=== PATIENT | male | born 1955 | race Caucasian/White ===

== ENCOUNTER 2017-12-15 19:38 | Emergency (ER) | payer OTHER ==
[2017-12-15 19:55] VITALS: BP 152/82
--- NOTE | 2017-12-15 21:29 | UC ---
Dental HPI - HPI Summary HPI Summary: Patient is a 62-year-old male presenting to the with lower right jaw pain and swelling from a cracked tooth for many years ago which is now becoming loose. He endorses worsening pain over the past 3 days. Denies any fevers, sweats, chills. He states the pain is so great it is now making him dizzy. Denies any cardiac history. - History of Current Complaint Chief Complaint: UCDentalProblem Stated Complaint: SORE ON MOUTH Time Seen by Provider: 12/15/17 20:01 Hx Obtained From: Patient Onset/Duration: Sudden Onset Severity: Moderate Pain Intensity: 8 Pain Scale Used: 0-10 Numeric - Allergies/Home Medications Allergies/Adverse Reactions: Allergies Allergy/AdvReac Type Severity Reaction Status Date / Time simvastatin Allergy Intermediate Hives Verified 12/15/17 19:55 Home Medications: Home Medications Cholecalciferol TAB* [Vitamin D TAB*] 400 unit PO DAILY 12/15/17 [History Confirmed 12/15/17] Ferrous Gluconate [Iron] 236 mg PO DAILY WITH MEAL 12/15/17 [History Confirmed 12/15/17] Pantoprazole Sodium [Protonix] 40 mg PO DAILY WITH MEAL 12/15/17 [History Confirmed 12/15/17] Sildenafil Citrate [Viagra] 100 mg PO ONCE 12/15/17 [History Confirmed 12/15/17] PMH/Surg Hx/FS Hx/Imm Hx Previously Healthy: Yes - Surgical History Surgical History: None Surgery Procedure, Year, and Place: denies - Family History Known Family History: Positive: Cardiac Disease - Social History Occupation: Employed Full-time Lives: With Family Alcohol Use: None Substance Use Type: None Smoking Status (MU): Former Smoker Type: Cigarettes Amount Used/How Often: 1ppd Length of Time of Smoking/Using Tobacco: 40 years Have You Smoked in the Last Year: Yes When Did the Patient Quit Smoking/Using Tobacco: 2014 Review of Systems Constitutional: Negative Skin: Negative ENT: Dental Pain Respiratory: Negative Cardiovascular: Negative Motor: Negative Neurovascular: Negative Musculoskeletal: Negative Psychological: Negative Is Patient Immunocompromised?: No All Other Systems Reviewed And Are Negative: Yes Physical Exam Triage Information Reviewed: Yes Appearance: Well-Appearing, No Pain Distress, Well-Nourished Vital Signs: Initial Vital Signs Temp 98.7 F 12/15/17 19:48 Pulse 107 12/15/17 19:48 Resp 20 12/15/17 19:48 BP 152/82 12/15/17 19:48 Pulse Ox 98 12/15/17 19:48 Vital Signs Reviewed: Yes Eye Exam: Normal Eyes: Positive: Conjunctiva Clear ENT: Positive: Pharynx normal. Negative: Pharyngeal erythema, Tonsillar swelling, Tonsillar exudate, Uvula midline Dental: Positive: Percussion Tenderness @ - right lower jaw, Gross Decay/Caries @, Dental Fracture @ Neck: Positive: Supple, Enlarged Nodes @ - cervical anterior Respiratory Exam: Normal Respiratory: Positive: Chest non-tender, Lungs clear Musculoskeletal Exam: Normal Musculoskeletal: Positive: Strength Intact Neurological Exam: Normal Neurological: Positive: Alert Psychological: Positive: Normal Response To Family Skin Exam: Normal Dental Complaint Course/Dx - Course Course Of Treatment: On arrival, EKG was placed due to dizziness. EKG shows sinus tachycardia at 100 bpm. However patient states he was only dizzy due to the amount of pain he is in. Currently taking imbecile, Tylenol and ibuprofen. Took 2 amoxicillin from home that he had left over from a previous infection. There is a significant amount of gingivitis, fractured and broken teeth throughout. No evidence of clear abscess, however swelling is noted to the right lower jaw. He is given Penicillin and Pain Control. He Has a Follow-Up to His Dentist on Monday Morning. - Differential Dx/Diagnosis Differential Diagnosis/Dx: Dental Abscess, Dental Caries, Fractured Tooth, Odontogenic Pain, Peridontic Disease Provider Diagnoses: Dental pain Discharge - Sign-Out/Discharge Documenting (check all that apply): Patient Departure - Discharge Plan Condition: Stable Disposition: HOME Prescriptions: oxyCODONE/Acetamin 10/325(NF) [Percocet 10/325 (NF)] 1 tab PO QID #12 tab MDD 4 Penicillin VK 500 MG TAB(NF) [Penicillin VK 500 mg Tab(NF)] 500 mg PO QID #20 tab MDD 4 Patient Education Materials: Dental Abscess (ED) Referrals: Dennis Lux MD [Primary Care Provider] - Additional Instructions: Do not smoke Drink plenty of fluids and continue with [id number] Ambesol Ibuprofen 600 mg 3 times daily Percocet up to 4 times daily as needed for pain Take both of these medications intermittently to allow for more even pain control - Billing Disposition and Condition Condition: STABLE Disposition: Home
== END 2017-12-15 20:27 | disposition home or self-care (01) ==
LOC: UCEAST 19:38
DX: K08.89 Other specified disorders of teeth and supporting structures (principal); Z88.8 Allergy status to other drugs, medicaments and biological substances; Z87.891 Personal history of nicotine dependence
CPT/HCPCS: 93005; 99202; G0463